=== PATIENT | female | born 1970 | race American Indian/Alaskan Native ===

== ENCOUNTER 2018-08-24 07:42 | Inpatient (IN) | payer BC ==
[2018-08-24] MEDS ORDERED: APRESOLINE IV ONE (08:12)
[2018-08-24 08:30] LABS: Red Blood Count 2.73 M/mm3 (3.65-5.03)
--- NOTE | 2018-08-24 08:32 | XRay Report ---
AP CHEST: HISTORY: Short of breath AP view of the chest demonstrates a normal mediastinal and cardiac contour with clear lungs and normal bony and soft tissue structures. IMPRESSION: Unremarkable AP chest.
[2018-08-24] MEDS ORDERED: ZOFRAN IV ONE (08:38)
[2018-08-24] MEDS ORDERED: HumuLIN R IV ONE ×2 (08:38→09:03)
[2018-08-24] MEDS ORDERED: NACL 0.9% 1000 ML 1,000 ML IV ONE ×2 (08:38→09:03)
[2018-08-24 08:40] LABS: Alanine Aminotransferase 31 units/L (7-56); BUN/Creatinine Ratio 20; Blood Urea Nitrogen 22 mg/dL (7-17); Hemolysis Index 10
--- NOTE | 2018-08-24 08:40 | Emergency Department Report ---
ED General Adult HPI - General Chief complaint: Hyperglycemia Stated complaint: WEAK/VOMIT/DIABETIC Time Seen by Provider: 08/24/18 08:04 Source: patient Mode of arrival: Wheelchair Limitations: No Limitations - History of Present Illness Initial comments: Patient is 48 years old female with history of diabetes and anemia secondary to excessive menstrual bleeding. Patient is not actively bleeding. Patient presented to the ER complaining of generalized weakness, nausea vomiting and abdominal pain for the last 3 days. Patient found to have a high blood sugar at home. Patient stated that she is on insulin noncompliant with her medication. Patient denied any fever or chills. Patient also complaining of palpitation. - Related Data Home Medications Medication Instructions Recorded Confirmed Last Taken Insulin NPH/Regular [Novolin 70/30] 35 unit SUB-Q QPM 06/11/15 06/11/15 Unknown Insulin NPH/Regular [Novolin 70/30] 50 unit SUB-Q QAM 06/11/15 06/11/15 Unknown Previous Rx's Medication Instructions Recorded Last Taken Type ALBUTEROL Inhaler (OR & NICU) 2 puff IH QID PRN #1 inhalation 06/11/15 Unknown Rx [Proair] Benzonatate [Tessalon Perles] 100 mg PO Q8HR #30 capsule 06/11/15 Unknown Rx Docusate Sodium [Colace] 100 mg PO BID #60 capsule 06/11/15 Unknown Rx Ferrous Sulfate [Feosol 325 MG tab] 325 mg PO TID #90 tablet 06/11/15 Unknown Rx levoFLOXacin [Levaquin TAB] 500 mg PO QDAY #10 tablet 06/11/15 Unknown Rx Naproxen [Naprosyn TAB] 500 mg PO BID PRN #20 tablet 02/05/16 Unknown Rx Allergies Allergy/AdvReac Type Severity Reaction Status Date / Time No Known Allergies Allergy Verified 08/24/18 07:45 ED Review of Systems ROS: Stated complaint: WEAK/VOMIT/DIABETIC Other details as noted in HPI Comment: All other systems reviewed and negative Constitutional: denies: chills, fever Respiratory: denies: cough, orthopnea Cardiovascular: palpitations. denies: chest pain Gastrointestinal: abdominal pain, nausea, vomiting. denies: diarrhea, constipation, hematemesis, melena, hematochezia Musculoskeletal: denies: back pain Neurological: weakness (generalized). denies: headache, numbness, paresthesias, confusion ED Past Medical Hx - Past Medical History Previous Medical History?: Yes Hx Diabetes: Yes - Surgical History Past Surgical History?: Yes Additional Surgical History: tubal ligation - Social History Smoking Status: Former Smoker Substance Use Type: None - Medications Home Medications: Home Medications Medication Instructions Recorded Confirmed Last Taken Type ALBUTEROL Inhaler (OR & NICU) 2 puff IH QID PRN #1 inhalation 06/11/15 Unknown Rx [Proair] Benzonatate [Tessalon Perles] 100 mg PO Q8HR #30 capsule 06/11/15 Unknown Rx Docusate Sodium [Colace] 100 mg PO BID #60 capsule 06/11/15 Unknown Rx Ferrous Sulfate [Feosol 325 MG tab] 325 mg PO TID #90 tablet 06/11/15 Unknown Rx Insulin NPH/Regular [Novolin 70/30] 35 unit SUB-Q QPM 06/11/15 06/11/15 Unknown History Insulin NPH/Regular [Novolin 70/30] 50 unit SUB-Q QAM 06/11/15 06/11/15 Unknown History levoFLOXacin [Levaquin TAB] 500 mg PO QDAY #10 tablet 06/11/15 Unknown Rx Naproxen [Naprosyn TAB] 500 mg PO BID PRN #20 tablet 02/05/16 Unknown Rx ED Physical Exam - General Limitations: No Limitations General appearance: alert, in no apparent distress - Head Head exam: Present: atraumatic, normocephalic, normal inspection - Eye Eye exam: Present: normal appearance, PERRL - ENT ENT exam: Present: mucous membranes dry, TM's normal bilaterally, normal external ear exam - Neck Neck exam: Present: normal inspection, full ROM. Absent: tenderness, meningismus, lymphadenopathy, thyromegaly - Respiratory Respiratory exam: Present: normal lung sounds bilaterally. Absent: respiratory distress, wheezes, rales, rhonchi - Cardiovascular Cardiovascular Exam: Present: tachycardia, normal heart sounds - GI/Abdominal GI/Abdominal exam: Present: soft, normal bowel sounds. Absent: distended, tenderness, guarding, rebound, rigid, organomegaly, mass, bruit, pulsatile mass, hernia - Extremities Exam Extremities exam: Present: normal inspection, full ROM, normal capillary refill. Absent: pedal edema, calf tenderness - Back Exam Back exam: Present: normal inspection, full ROM. Absent: tenderness, CVA tenderness (R), CVA tenderness (L), muscle spasm, paraspinal tenderness, vertebral tenderness - Neurological Exam Neurological exam: Present: alert, oriented X3, CN II-XII intact, normal gait, reflexes normal - Skin Skin exam: Present: warm, intact, normal color ED Course Vital Signs 08/24/18 08:05 Temperature 98.4 F Pulse Rate 90 Respiratory 16 Rate Blood Pressure 131/58 O2 Sat by Pulse 100 Oximetry ED Medical Decision Making - Lab Data Result diagrams: 08/24/18 08:14 08/24/18 08:14 - EKG Data -: EKG Interpreted by Mt EKG shows normal: sinus rhythm Rate: tachycardia - EKG Data Interpretation: no acute changes - Radiology Data Radiology results: report reviewed Chest x-ray is negative for acute finding. - Medical Decision Making Patient is 48 years old female with history of diabetes and anemia secondary to excessive menstrual bleeding. Patient presented to the ER complaining of generalized weakness, nausea vomiting and abdominal pain for the last 3 days. Patient found to have a high blood sugar at home. Patient stated that she is on insulin noncompliant with her medication. Patient denied any fever or chills. Patient also complaining of palpitation. Patient found to be in DKA with anion gap 27. Patient also found to have a hemoglobin of 4.5 secondary to excessive menstrual bleeding. Patient is started on insulin drip and 2 units of RBCs ordered. Patient will need to be admitted to intensive care unit. I discussed the patient with Dr. Lamb, he advised to admit the patient to Dr. Kearney. Critical Care Time: Yes Critical care time in (mins) excluding proc time.: 45 Critical care attestation.: If time is entered above; I have spent that time in minutes in the direct care of this critically ill patient, excluding procedure time. ED Disposition Clinical Impression: DKA (diabetic ketoacidoses), Acute blood loss anemia Disposition: OP ADMIT IP TO THIS HOSP Is pt being admited?: Yes Condition: Stable Instructions: Diabetic Ketoacidosis (ED) Referrals: SJ BERNARDO MD [Primary Care Provider] - 3-5 Days
[2018-08-24 08:45] LABS: Bilirubin,Direct < 0.2 mg/dL (0-0.2)
[2018-08-24 09:06] LABS: Mean Corpuscular HGB Conc 28 % (30-34)
[2018-08-24 09:20] LABS: Hemoglobin 4.5 gm/dl (10.1-14.3)
[2018-08-24 09:21] LABS: Hematocrit 16.1 % (30.3-42.9); Mean Corpuscular Volume 59 fl (79-97); Platelet Count 2052 K/mm3 (140-440); Red Cell Distribution Width 29.6 % (13.2-15.2)
[2018-08-24 09:22] LABS: Bilirubin,Urine NEG (Negative); Blood,Urine NEG (Negative); Color,Urine Straw (Yellow); Mucus,Urine FEW /HPF; Urobilinogen,Urine < 2.0 mg/dL (<2.0)
[2018-08-24] MEDS ORDERED: NACL 0.9% 500 ML 500 ML IV ONE (09:27)
[2018-08-24] MEDS ORDERED: D50W (25GM) Syringe IV PRN ×3 (09:31→13:33)
[2018-08-24] MEDS ORDERED: ROCEPHIN/NS 1 GM/50 ML 1 GM/50 ML BAG IV ONE (09:39)
[2018-08-24] MEDS ORDERED: HumuLIN R 100 UNITS in NACL 0.9% 99 ML IV SCH ×2 (10:00→14:00)
[2018-08-24 10:11] LABS: BUN/Creatinine Ratio 20; Blood Urea Nitrogen 20 mg/dL (7-17); Calcium 8.6 mg/dL (8.4-10.2); Hemolysis Index 0
[2018-08-24] MEDS ORDERED: D5W/0.45% NACL/KCL 20 MEQ 20 MEQ/1,000 ML BAG IV SCH (12:00)
[2018-08-24 12:50] LABS: BUN/Creatinine Ratio 21; Blood Urea Nitrogen 19 mg/dL (7-17); Calcium 8.2 mg/dL (8.4-10.2); Hemolysis Index 0
[2018-08-24] MEDS ORDERED: SODIUM CHLORIDE FLUSH SYRINGE 10 ML IV PRN (13:33)
--- NOTE | 2018-08-24 13:42 | History and Physical Report ---
History of Present Illness Date of examination: 08/24/18 Date of admission: 08/24/18 09:40 Chief complaint: N/V History of present illness: Patient is 48 years old female with history of diabetes and anemia secondary to excessive menstrual bleeding. Patient is not actively bleeding. Patient presented to the ER complaining of generalized weakness, nausea vomiting and abdominal pain for the last 3 days. Patient found to have a high blood sugar at home. Patient stated that she is on insulin and reports that she has been compliant with her medication. However, patient states she did not take her insulin yesterday because she did not feel well. Patient reported 5 episodes of vomiting yesterday and 4 episodes this morning. Patient denied any fever or chills. Patient also complaining of palpitation. No headache or visual disturbances. Past History Past Medical History: anemia, diabetes Past Surgical History: No surgical history Social history: no significant social history Family history: no significant family history Medications and Allergies Allergies Allergy/AdvReac Type Severity Reaction Status Date / Time No Known Allergies Allergy Verified 08/24/18 07:45 Home Medications Medication Instructions Recorded Confirmed Last Taken Type Insulin NPH/Regular [Novolin 70/30] 25 units SUB-Q HS 06/11/15 08/24/18 Unknown History Insulin NPH/Regular [Novolin 70/30] 35 units SUB-Q QAM 06/11/15 08/24/18 Unknown History Cider Vinegar [Apple Cider Vinegar] 300 mg PO DAILY 08/24/18 08/24/18 Unknown History Active Meds: Active Medications Dextrose (D50w (25gm) Syringe) 0 ml IV PRN PRN PRN Reason: Hypoglycemia Insulin Human Regular 100 (units/ Sodium Chloride) 100 mls @ 1 mls/hr IV TITR EDISON; Protocol Last Titration: 08/24/18 13:15 Dose: 1.5 units/hr, 1.5 mls/hr Documented by: Potassium Chloride/Dextrose/Sod Cl (D5w/0.45% Nacl/Kcl 20 Meq) 20 meq in 1,000 mls @ 125 mls/hr IV DIRECT EDISON Last Admin: 08/24/18 12:08 Dose: 125 mls/hr Documented by: Review of Systems All systems: negative Exam - Constitutional Vitals: Temp Pulse Resp BP Pulse Ox 98.5 F 87 16 119/53 98 08/24/18 13:14 08/24/18 13:14 08/24/18 13:14 08/24/18 13:14 08/24/18 13:14 General appearance: Present: no acute distress, well-nourished - EENT Eyes: Present: PERRL ENT: hearing intact, clear oral mucosa - Neck Neck: Present: supple, normal ROM - Respiratory Respiratory effort: normal Respiratory: bilateral: CTA - Cardiovascular Heart Sounds: Present: S1 & S2. Absent: rub, click - Extremities Extremities: pulses symmetrical, No edema Peripheral Pulses: within normal limits - Abdominal General gastrointestinal: Present: soft, non-tender, non-distended, normal bowel sounds Female genitourinary: Present: normal - Integumentary Integumentary: Present: clear, warm, dry - Musculoskeletal Musculoskeletal: gait normal, strength equal bilaterally - Psychiatric Psychiatric: appropriate mood/affect, intact judgment & insight - Neurologic Neurologic: CNII-XII intact, moves all extremities Results - Labs CBC & Chem 7: 08/24/18 08:14 08/24/18 12:11 Labs: Laboratory Last Values WBC 13.8 K/mm3 (4.5-11.0) H 08/24/18 08:14 RBC 2.73 M/mm3 (3.65-5.03) L 08/24/18 08:14 Hgb 4.5 gm/dl (10.1-14.3) L* 08/24/18 08:14 Hct 16.1 % (30.3-42.9) L* 08/24/18 08:14 MCV 59 fl (79-97) L 08/24/18 08:14 MCH 17 pg (28-32) L 08/24/18 08:14 MCHC 28 % (30-34) L 08/24/18 08:14 RDW 29.6 % (13.2-15.2) H 08/24/18 08:14 Plt Count 2052 K/mm3 (140-440) H* 08/24/18 08:14 Sodium 141 mmol/L (137-145) 08/24/18 12:11 Potassium 3.9 mmol/L (3.6-5.0) 08/24/18 12:11 Chloride 108.8 mmol/L (98-107) H 08/24/18 12:11 Carbon Dioxide 20 mmol/L (22-30) L 08/24/18 12:11 16 mmol/L 08/24/18 12:11 BUN 19 mg/dL (7-17) H 08/24/18 12:11 0.9 mg/dL (0.7-1.2) 08/24/18 12:11 Estimated GFR > 60 ml/min 08/24/18 12:11 21 % 08/24/18 12:11 Glucose 147 mg/dL (65-100) H 08/24/18 12:11 POC Glucose 141 (70-105) H 08/24/18 13:12 Calcium 8.2 mg/dL (8.4-10.2) L 08/24/18 12:11 Phosphorus 2.60 mg/dL (2.5-4.5) 08/24/18 09:41 Magnesium 2.00 mg/dL (1.7-2.3) 08/24/18 09:41 0.50 mg/dL (0.1-1.2) 08/24/18 08:14 < 0.2 mg/dL (0-0.2) 08/24/18 08:14 AST 37 units/L (5-40) 08/24/18 08:14 ALT 31 units/L (7-56) 08/24/18 08:14 101 units/L (35-129) 08/24/18 08:14 < 0.010 ng/mL (0.00-0.029) 08/24/18 08:14 8.0 g/dL (6.3-8.2) 08/24/18 08:14 4.0 g/dL (3.9-5) 08/24/18 08:14 1.0 % 08/24/18 08:14 8 units/L (13-60) L 08/24/18 08:14 Straw (Yellow) 08/24/18 09:00 Clear (Clear) 08/24/18 09:00 5.0 (5.0-7.0) 08/24/18 09:00 Ur Specific [place] 1.016 (1.003-1.030) 08/24/18 09:00 30 mg/dl mg/dL (Negative) 08/24/18 09:00 >=500 mg/dL (Negative) 08/24/18 09:00 80 mg/dL (Negative) 08/24/18 09:00 Neg (Negative) 08/24/18 09:00 Neg (Negative) 08/24/18 09:00 Neg (Negative) 08/24/18 09:00 < 2.0 mg/dL (<2.0) 08/24/18 09:00 Ur Leukocyte Esterase Neg (Negative) 08/24/18 09:00 1.0 /HPF (0.0-6.0) 08/24/18 09:00 2.0 /HPF (0.0-6.0) 08/24/18 09:00 U Epithel Cells (Auto) 3.0 /HPF (0-13.0) 08/24/18 09:00 Few /HPF 08/24/18 09:00 Blood Type TNR 08/24/18 09:53 Antibody Screen 08/24/18 09:53 Crossmatch See Detail 08/24/18 09:53 Assessment and Plan Assessment and plan: DKA. Patient will be placed on a DKA protocol. We will start IV insulin and transition to long-acting insulin when her acidosis has resolved. Severe acute blood loss anemia. Patient will be transfused PRBCs. Follow H&H. Etiology likely secondary to acute blood loss from menorrhagia. Menorrhagia. Consult FULL ROLL INSPECTOR for further evaluation.
[2018-08-24 14:14] LABS: Basophils % (Manual) 0 % (0.0-1.8); Eosinophils % (Manual) 0 % (0.0-4.3); Total Cells Counted 100
[2018-08-24 14:16] LABS: Anisocytosis 3+; Hypochromasia 3+; Stomatocytes Rare
[2018-08-24 14:17] LABS: Large Platelets Rare; Platelet Estimate Appears Increased; Tear Drop Cells Few
--- NOTE | 2018-08-24 14:47 | Consultation ---
History of Present Illness Consult date: 08/24/18 Requesting physician: RAMESH TAPIA Reason for consult: menorrhagia, other (symptomatic anemia) History of present illness: Patient is 48 years old BF LMP 08/11/18 with a history of diabetes and anemia secondary to excessive menstrual bleeding, presented to the ER complaining of generalized weakness, nausea vomiting and abdominal pain for the last 3 days. She was found to have a high blood sugar at home. She stated that she is on insulin and reports that she has been compliant with her medication. However, she did not take her insulin yesterday because she did not feel well, and having palpitations. She reported 5 episodes of vomiting yesterday and 4 episodes this morning. She denied any fever or chills, headaches or visual disturbances. I have been consulted to evaluate her menorrhagia. She is currently not bleeding, but her H/H was 4.5/16.1 A pelvic u/s was perfomed showing an enlarged uterus measuring 15.1 x 5.9 x 7.8cm with multiple fibroids. 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: fibroids Social history: no significant social history, single Medications and Allergies Allergies Allergy/AdvReac Type Severity Reaction Status Date / Time No Known Allergies Allergy Verified 08/24/18 07:45 Home Medications Medication Instructions Recorded Confirmed Last Taken Type Insulin NPH/Regular [Novolin 70/30] 25 units SUB-Q HS 06/11/15 08/24/18 Unknown History Insulin NPH/Regular [Novolin 70/30] 35 units SUB-Q QAM 06/11/15 08/24/18 Unknown History Cider Vinegar [Apple Cider Vinegar] 300 mg PO DAILY 08/24/18 08/24/18 Unknown History Active Meds: Active Medications Dextrose (D50w (25gm) Syringe) 0 ml IV PRN PRN PRN Reason: Hypoglycemia Dextrose (D50w (25gm) Syringe) 0 ml IV PRN PRN PRN Reason: Hypoglycemia Dextrose (D50w (25gm) Syringe) 0 ml IV ONCE PRN PRN Reason: Hypoglycemia Insulin Human Regular 100 (units/ Sodium Chloride) 100 mls @ 1 mls/hr IV TITR EDISON; Protocol Last Titration: 08/24/18 14:26 Dose: 1 units/hr, 1 mls/hr Documented by: Potassium Chloride/Dextrose/Sod Cl (D5w/0.45% Nacl/Kcl 20 Meq) 20 meq in 1,000 mls @ 125 mls/hr IV DIRECT EDISON Last Admin: 08/24/18 12:08 Dose: 125 mls/hr Documented by: Insulin Human Regular 100 (units/ Sodium Chloride) 100 mls @ 1 mls/hr IV TITR EDISON; Protocol Sodium Chloride (Sodium Chloride Flush Syringe 10 Ml) 10 ml IV BID EDISON Sodium Chloride (Sodium Chloride Flush Syringe 10 Ml) 10 ml IV PRN PRN PRN Reason: LINE FLUSH Review of Systems All systems: negative - Vital Signs Vital signs: Vital Signs Temp Pulse Resp BP Pulse Ox 98.4 F 90 16 131/58 100 08/24/18 08:05 08/24/18 08:05 08/24/18 08:05 08/24/18 08:05 08/24/18 08:05 Temp Pulse Resp BP Pulse Ox 98.2 F 88 18 129/56 100 08/24/18 14:15 08/24/18 14:15 08/24/18 14:15 08/24/18 14:15 08/24/18 14:15 - Physical Exam Breasts: Positive: deferred Cardiovascular: Regular rate Abdomen: Positive: normal appearance, soft Uterus: Positive: enlarged Extremities: Positive: normal Results Result Diagrams: 08/24/18 16:57 08/25/18 01:24 Abnormal lab results 08/24/18 08/24/18 08/24/18 Range/Units 07:52 08:14 08:14 WBC 13.8 H (4.5-11.0) K/mm3 RBC 2.73 L (3.65-5.03) M/mm3 Hgb 4.5 L* (10.1-14.3) gm/dl Hct 16.1 L* (30.3-42.9) % MCV 59 L (79-97) fl MCH 17 L (28-32) pg MCHC 28 L (30-34) % RDW 29.6 H (13.2-15.2) % Plt Count 2052 H* (140-440) K/mm3 Seg Neuts % (Manual) 94.0 H (40.0-70.0) % Lymphocytes % (Manual) 5.0 L (13.4-35.0) % Nucleated RBC % 1.0 H (0.0-0.9) % Seg Neutrophils # Man 13.0 H (1.8-7.7) K/mm3 Lymphocytes # (Manual) 0.7 L (1.2-5.4) K/mm3 Sodium 136 L (137-145) mmol/L Chloride (98-107) mmol/L Carbon Dioxide 15 L (22-30) mmol/L BUN 22 H (7-17) mg/dL Glucose 514 H* (65-100) mg/dL POC Glucose 492 H (70-105) Calcium (8.4-10.2) mg/dL Lipase (13-60) units/L Crossmatch 08/24/18 08/24/18 08/24/18 Range/Units 08:14 09:41 09:41 WBC (4.5-11.0) K/mm3 RBC (3.65-5.03) M/mm3 Hgb (10.1-14.3) gm/dl Hct (30.3-42.9) % MCV (79-97) fl MCH (28-32) pg MCHC (30-34) % RDW (13.2-15.2) % Plt Count (140-440) K/mm3 Seg Neuts % (Manual) (40.0-70.0) % Lymphocytes % (Manual) (13.4-35.0) % Nucleated RBC % (0.0-0.9) % Seg Neutrophils # Man (1.8-7.7) K/mm3 Lymphocytes # (Manual) (1.2-5.4) K/mm3 Sodium (137-145) mmol/L Chloride (98-107) mmol/L Carbon Dioxide 17 L (22-30) mmol/L BUN 20 H (7-17) mg/dL Glucose 323 H (65-100) mg/dL POC Glucose (70-105) Calcium (8.4-10.2) mg/dL Lipase 8 L (13-60) units/L Crossmatch See Detail 08/24/18 08/24/18 08/24/18 Range/Units 09:53 10:14 11:20 WBC (4.5-11.0) K/mm3 RBC (3.65-5.03) M/mm3 Hgb (10.1-14.3) gm/dl Hct (30.3-42.9) % MCV (79-97) fl MCH (28-32) pg MCHC (30-34) % RDW (13.2-15.2) % Plt Count (140-440) K/mm3 Seg Neuts % (Manual) (40.0-70.0) % Lymphocytes % (Manual) (13.4-35.0) % Nucleated RBC % (0.0-0.9) % Seg Neutrophils # Man (1.8-7.7) K/mm3 Lymphocytes # (Manual) (1.2-5.4) K/mm3 Sodium (137-145) mmol/L Chloride (98-107) mmol/L Carbon Dioxide (22-30) mmol/L BUN (7-17) mg/dL Glucose (65-100) mg/dL POC Glucose 347 H 222 H (70-105) Calcium (8.4-10.2) mg/dL Lipase (13-60) units/L Crossmatch See Detail 08/24/18 08/24/18 08/24/18 Range/Units 12:11 12:21 13:12 WBC (4.5-11.0) K/mm3 RBC (3.65-5.03) M/mm3 Hgb (10.1-14.3) gm/dl Hct (30.3-42.9) % MCV (79-97) fl MCH (28-32) pg MCHC (30-34) % RDW (13.2-15.2) % Plt Count (140-440) K/mm3 Seg Neuts % (Manual) (40.0-70.0) % Lymphocytes % (Manual) (13.4-35.0) % Nucleated RBC % (0.0-0.9) % Seg Neutrophils # Man (1.8-7.7) K/mm3 Lymphocytes # (Manual) (1.2-5.4) K/mm3 Sodium (137-145) mmol/L Chloride 108.8 H (98-107) mmol/L Carbon Dioxide 20 L (22-30) mmol/L BUN 19 H (7-17) mg/dL Glucose 147 H (65-100) mg/dL POC Glucose 185 H 141 H (70-105) Calcium 8.2 L (8.4-10.2) mg/dL Lipase (13-60) units/L Crossmatch All other labs normal. Ultrasound: report reviewed (uterus 15.1 x 5.9 x 7.8cm with multiple fibroids) Assessment and Plan - Patient Problems (1) Menorrhagia with irregular cycle Onset Date: 08/24/18 Current Visit: Yes Status: Acute Plan to address problem: A: Symptomatic anemia - currently being transfused Menorrhagia - most likely due to uterine fibroids Uterine fibroids IDDM - DKA P: Agree with admission for blood transfusion and management of DKA She can follow up in the office for further evaluation of menorrhagia including a Pap smear and endometrial biopsy. (2) Uterine fibroid Onset Date: 08/24/18 Current Visit: Yes Status: Acute Qualifiers: Uterine leiomyoma location: intramural, submucous, and subserous Qualified Code(s): D25.1 - Intramural leiomyoma of uterus; D25.0 - Submucous leiomyoma of uterus; D25.2 - Subserosal leiomyoma of uterus (3) Acute blood loss anemia Onset Date: 08/24/18 Current Visit: Yes Status: Acute (4) DKA (diabetic ketoacidoses) Onset Date: 08/24/18 Current Visit: Yes Status: Acute Qualifiers: Diabetes mellitus type: type 1 Diabetes mellitus complication detail: without coma Qualified Code(s): E10.10 - Type 1 diabetes mellitus with ketoacidosis without coma
[2018-08-24] MEDS ORDERED: NACL 0.9% 500 ML 500 ML ONE (16:24)
[2018-08-24 17:32] LABS: Hematocrit 20.4 % (30.3-42.9); Hemoglobin 6.2 gm/dl (10.1-14.3); Mean Corpuscular HGB Conc 31 % (30-34); Red Blood Count 3.04 M/mm3 (3.65-5.03)
[2018-08-24 17:33] LABS: Mean Corpuscular Volume 67 fl (79-97)
[2018-08-24 17:34] LABS: Red Cell Distribution Width 36.3 % (13.2-15.2)
[2018-08-24 17:36] LABS: Platelet Count 1679 K/mm3 (140-440)
[2018-08-24 17:42] LABS: BUN/Creatinine Ratio 19; Blood Urea Nitrogen 17 mg/dL (7-17); Calcium 7.9 mg/dL (8.4-10.2); Hemolysis Index 0
[2018-08-24 18:36] LABS: Anisocytosis 3+; Hypochromasia 2+; Total Cells Counted 100
[2018-08-24 18:37] LABS: Dimorphic RBC Yes
--- NOTE | 2018-08-24 18:52 | Ultrasound Report ---
PROCEDURE: US TRANSVAGINAL TECHNIQUE: HISTORY: Menorrhagia; Severe anemia COMPARISONS: FINDINGS: The uterus measures 15.1 x 5.9 x 7.8 cm. At the fundus of the uterus there is a subserosal fibroid me asuring 4.4 x 3.8 x 4.9 cm. There is also an anterior fibroid measuring 2.2 x 1.6 x 2.6 cm in the pos terior fibroid measuring 3.7 x 1.9 x 4.1 cm. At the fundus there is a 2 cm echogenic focus which could reflect a submucosal fibroid or polyp. Right ovary is 3.6 x 2.1 x 3.2 cm normal sonographic appearance Left ovary is 5.4 x 1.8 x 4.5 cm. No free fluid identified IMPRESSION: Multiple uterine fibroids Echogenic focus at the fundus which appears within the endometrium may reflect submucosal fibroid kathia graciela polyp. This document is electronically signed by Maykel Mar MD., August 24 2018 06:50:04 PM ET
--- NOTE | 2018-08-24 18:53 | Ultrasound Report ---
PROCEDURE: US PELVIC COMPLETE TECHNIQUE: Ultrasound pelvis transabdominal HISTORY: Menorrhagia; Severe anemia COMPARISONS: FINDINGS: The uterus measures 15.1 x 5.9 x 7.8 cm. At the fundus of the uterus there is a subserosal fibroid me asuring 4.4 x 3.8 x 4.9 cm. There is also an anterior fibroid measuring 2.2 x 1.6 x 2.6 cm in the pos terior fibroid measuring 3.7 x 1.9 x 4.1 cm. At the fundus there is a 2 cm echogenic focus which could reflect a submucosal fibroid or polyp. Right ovary is 3.6 x 2.1 x 3.2 cm normal sonographic appearance Left ovary is 5.4 x 1.8 x 4.5 cm. No free fluid identified IMPRESSION: Multiple uterine fibroids Echogenic focus at the fundus which appears within the endometrium may reflect submucosal fibroid kathia graciela polyp. This document is electronically signed by Maykel Mar MD., August 24 2018 06:52:03 PM ET
[2018-08-25] MEDS ORDERED: LASIX IV ONE (01:15)
[2018-08-25] MEDS ORDERED: NACL 0.9% 500 ML 500 ML IV ONE ×2 (01:16→14:00)
[2018-08-25 03:34] LABS: BUN/Creatinine Ratio 19; Blood Urea Nitrogen 15 mg/dL (7-17); Calcium 8.4 mg/dL (8.4-10.2)
[2018-08-25 04:25] LABS: Hemolysis Index 0
[2018-08-25] MEDS: SODIUM CHLORIDE FLUSH SYRINGE 10 ML IV SCH ×3 (05:19→21:12)
[2018-08-25] MEDS: HumaLOG SUB-Q SCH ×4 (05:39→18:05)
[2018-08-25] MEDS ORDERED: D50W (25GM) Syringe IV PRN (10:21)
--- NOTE | 2018-08-25 11:50 | Consultation ---
History of Present Illness Consult date: 08/25/18 Requesting physician: RAMESH TAPIA Reason for consult: other (Diabetic ketoacidosis, severe blood loss anemia) History of present illness: Patient is 48 years old female with history of diabetes and anemia secondary to excessive menstrual bleeding. Patient is not actively bleeding. Patient presented to the ER complaining of generalized weakness, nausea vomiting and abdominal pain for the last 3 days. Patient found to have a high blood sugar at home. Patient stated that she is on insulin and reports that she has been compliant with her medication. However, patient states she did not take her insulin yesterday because she did not feel well. Patient reported 5 episodes of vomiting yesterday and 4 episodes this morning. Patient denied any fever or chills. Patient also complaining of palpitation. No headache or visual disturbances. Admitted to the ICU for severe anemia and diabetic ketoacidosis. I have been consulted fro critical care management. Patient was seen and examined. Vitals, labs, medications, chart and imaging reviewed. History as documented. She does endorse a history of smoking cigars, and heavy menstrual flow, with diagnosis of fibroids. Past History Past Medical History: anemia, diabetes Past Surgical History: No surgical history Social history: no significant social history, single Family history: no significant family history Medications and Allergies Allergies Allergy/AdvReac Type Severity Reaction Status Date / Time No Known Allergies Allergy Verified 08/24/18 07:45 Home Medications Medication Instructions Recorded Confirmed Last Taken Type Insulin NPH/Regular [Novolin 70/30] 25 units SUB-Q HS 06/11/15 08/24/18 Unknown History Insulin NPH/Regular [Novolin 70/30] 35 units SUB-Q QAM 06/11/15 08/24/18 Unknown History Cider Vinegar [Apple Cider Vinegar] 300 mg PO DAILY 08/24/18 08/24/18 Unknown History Active Meds: Active Medications Dextrose (D50w (25gm) Syringe) 0 ml IV ONCE PRN PRN Reason: Hypoglycemia Dextrose (D50w (25gm) Syringe) 50 ml IV PRN PRN PRN Reason: Hypoglycemia Insulin Human Isoph/Insulin Regular (Humulin 70/30) 35 unit SUB-Q QAM [facility] Insulin Human Isoph/Insulin Regular (Humulin 70/30) 25 unit SUB-Q HS [facility] Insulin Human Lispro (Humalog) 0 unit SUB-Q Q6HR [facility]; Protocol Last Admin: 08/25/18 05:39 Dose: 6 unit Documented by: Insulin Human Regular (Humulin R) 0 units SUB-Q ACHS [facility]; Protocol Sodium Chloride (Sodium Chloride Flush Syringe 10 Ml) 10 ml IV BID [facility]ISON Last Admin: 08/25/18 09:53 Dose: 10 ml Documented by: Sodium Chloride (Sodium Chloride Flush Syringe 10 Ml) 10 ml IV PRN PRN PRN Reason: LINE FLUSH Physical Examination Vital signs: Vital Signs Temp Pulse Resp BP Pulse Ox 98.4 F 90 16 131/58 100 08/24/18 08:05 08/24/18 08:05 08/24/18 08:05 08/24/18 08:05 08/24/18 08:05 General appearance: Present: no acute distress, well-nourished - EENT Eyes: Present: PERRL ENT: hearing intact, clear oral mucosa - Neck Neck: Present: supple, normal ROM - Respiratory Respiratory effort: normal Respiratory: bilateral: CTA - Cardiovascular Heart Sounds: Present: S1 & S2. Absent: rub, click - Extremities Extremities: pulses symmetrical, No edema Peripheral Pulses: within normal limits - Abdominal General gastrointestinal: Present: soft, non-tender, non-distended, normal bowel sounds Female genitourinary: Present: normal - Integumentary Integumentary: Present: clear, warm, dry - Musculoskeletal Musculoskeletal: gait normal, strength equal bilaterally - Psychiatric Psychiatric: appropriate mood/affect, intact judgment & insight - Neurologic Neurologic: CNII-XII intact, moves all extremities Results - Laboratory Findings CBC and BMP: 08/25/18 11:29 08/25/18 01:24 Abnormal lab findings: Abnormal Labs 08/24/18 08/24/18 08/24/18 07:52 08:14 08:14 WBC 13.8 H RBC 2.73 L Hgb 4.5 L* Hct 16.1 L* MCV 59 L MCH 17 L MCHC 28 L RDW 29.6 H Plt Count 2052 H* Seg Neuts % (Manual) 94.0 H Lymphocytes % (Manual) 5.0 L Monocytes % (Manual) Nucleated RBC % 1.0 H Seg Neutrophils # Man 13.0 H Lymphocytes # (Manual) 0.7 L Monocytes # (Manual) Sodium 136 L Chloride Carbon Dioxide 15 L BUN 22 H Glucose 514 H* POC Glucose 492 H Calcium Lipase Crossmatch 08/24/18 08/24/18 08/24/18 08:14 09:41 09:41 WBC RBC Hgb Hct MCV MCH MCHC RDW Plt Count Seg Neuts % (Manual) Lymphocytes % (Manual) Monocytes % (Manual) Nucleated RBC % Seg Neutrophils # Man Lymphocytes # (Manual) Monocytes # (Manual) Sodium Chloride Carbon Dioxide 17 L BUN 20 H Glucose 323 H POC Glucose Calcium Lipase 8 L Crossmatch See Detail 08/24/18 08/24/18 08/24/18 09:53 10:14 11:20 WBC RBC Hgb Hct MCV MCH MCHC RDW Plt Count Seg Neuts % (Manual) Lymphocytes % (Manual) Monocytes % (Manual) Nucleated RBC % Seg Neutrophils # Man Lymphocytes # (Manual) Monocytes # (Manual) Sodium Chloride Carbon Dioxide BUN Glucose POC Glucose 347 H 222 H Calcium Lipase Crossmatch See Detail 08/24/18 08/24/18 08/24/18 12:11 12:21 13:12 WBC RBC Hgb Hct MCV MCH MCHC RDW Plt Count Seg Neuts % (Manual) Lymphocytes % (Manual) Monocytes % (Manual) Nucleated RBC % Seg Neutrophils # Man Lymphocytes # (Manual) Monocytes # (Manual) Sodium Chloride 108.8 H Carbon Dioxide 20 L BUN 19 H Glucose 147 H POC Glucose 185 H 141 H Calcium 8.2 L Lipase Crossmatch 08/24/18 08/24/18 08/24/18 14:28 15:31 16:21 WBC RBC Hgb Hct MCV MCH MCHC RDW Plt Count Seg Neuts % (Manual) Lymphocytes % (Manual) Monocytes % (Manual) Nucleated RBC % Seg Neutrophils # Man Lymphocytes # (Manual) Monocytes # (Manual) Sodium Chloride Carbon Dioxide BUN Glucose POC Glucose 111 H 109 H 122 H Calcium Lipase Crossmatch 08/24/18 08/24/18 08/24/18 16:46 16:57 17:36 WBC RBC 3.04 L Hgb 6.2 L Hct 20.4 L MCV 67 L MCH 21 L MCHC RDW 36.3 H Plt Count 1679 H* Seg Neuts % (Manual) 72.0 H Lymphocytes % (Manual) Monocytes % (Manual) 9.0 H Nucleated RBC % Seg Neutrophils # Man Lymphocytes # (Manual) Monocytes # (Manual) 1.0 H Sodium Chloride 107.5 H Carbon Dioxide 21 L BUN Glucose 103 H POC Glucose 125 H Calcium 7.9 L Lipase Crossmatch 08/24/18 08/24/18 08/24/18 18:27 20:15 23:41 WBC RBC Hgb Hct MCV MCH MCHC RDW Plt Count Seg Neuts % (Manual) Lymphocytes % (Manual) Monocytes % (Manual) Nucleated RBC % Seg Neutrophils # Man Lymphocytes # (Manual) Monocytes # (Manual) Sodium Chloride Carbon Dioxide BUN Glucose POC Glucose 134 H 140 H 166 H Calcium Lipase Crossmatch 08/25/18 08/25/18 01:24 05:38 WBC RBC Hgb Hct MCV MCH MCHC RDW Plt Count Seg Neuts % (Manual) Lymphocytes % (Manual) Monocytes % (Manual) Nucleated RBC % Seg Neutrophils # Man Lymphocytes # (Manual) Monocytes # (Manual) Sodium 136 L Chloride Carbon Dioxide 20 L BUN Glucose 170 H POC Glucose 326 H Calcium Lipase Crossmatch Assessment and Plan Severe symptomatic anemia Diabetic ketoacidosis Menorrhagia/Fibroids Tobacco use disorder Obesity Thrombocytosis, probably reactive to severe blood loss anemia -Supportive transfusions, follow up H and H -Diabetic ketoacidosis treatment per protocol- insulin infusion, serial BMPs, venous ABG, IV fluids, replete electrolytes as indicated -SCDs for VTE prophylaxis -Smoking cessation counselling done at the bedside. She states she quit several weeks ago and intends to remain quit -Anti-emetics, analgesia -Diabetic education -Life style modifications and weight loss -Agree with OBGYN consult -Iron replacement therapy -Once she is off insulin infusion, start steady carb diet, basal bolus insulin therapy Thank you for consult. Will follow
[2018-08-25 12:22] LABS: Hematocrit 27.6 % (30.3-42.9); Hemoglobin 8.6 gm/dl (10.1-14.3)
[2018-08-25] MEDS: HumuLIN R SUB-Q SCH ×3 (12:45→21:35)
--- NOTE | 2018-08-25 13:17 | Progress Note ---
Assessment and Plan Assessment and plan: DKA. Transition to her home regimen long-acting insulin. Severe acute blood loss anemia. Patient will be transfused PRBCs. Follow H&H. Etiology likely secondary to acute blood loss from menorrhagia. Menorrhagia. [facility] following. A pelvic u/s was perfomed showing an enlarged uterus measuring 15.1 x 5.9 x 7.8cm with multiple fibroids. Uterine fibroid. Cont per [facility] History Interval history: No new issues overnight. Hospitalist Physical - Constitutional Vitals: Temp Pulse Resp BP Pulse Ox 98.7 F 72 18 142/66 95 08/25/18 12:00 08/25/18 11:01 08/25/18 11:01 08/25/18 11:01 08/25/18 11:01 General appearance: Present: no acute distress, well-nourished - EENT Eyes: Present: PERRL, EOM intact ENT: hearing intact, clear oral mucosa, dentition normal - Neck Neck: Present: supple, normal ROM - Respiratory Respiratory effort: normal Respiratory: bilateral: CTA - Cardiovascular Rhythm: regular Heart Sounds: Present: S1 & S2. Absent: gallop, rub - Extremities Extremities: no ischemia, No edema, Full ROM - Abdominal General gastrointestinal: soft, non-tender, non-distended, normal bowel sounds - Integumentary Integumentary: Present: clear, warm, dry - Neurologic Neurologic: CNII-XII intact, moves all extremities Results - Labs CBC & Chem 7: 08/25/18 11:29 08/25/18 01:24 Labs: Laboratory Last Values WBC 10.6 K/mm3 (4.5-11.0) 08/24/18 16:57 RBC 3.04 M/mm3 (3.65-5.03) L 08/24/18 16:57 Hgb 8.6 gm/dl (10.1-14.3) L 08/25/18 11:29 Hct 27.6 % (30.3-42.9) L D 08/25/18 11:29 MCV 67 fl (79-97) L 08/24/18 16:57 MCH 21 pg (28-32) L 08/24/18 16:57 MCHC 31 % (30-34) 08/24/18 16:57 RDW 36.3 % (13.2-15.2) H 08/24/18 16:57 Plt Count 1679 K/mm3 (140-440) H* 08/24/18 16:57 Add Manual Diff Complete 08/24/18 16:57 Total Counted 100 08/24/18 16:57 Seg Neuts % (Manual) 72.0 % (40.0-70.0) H 08/24/18 16:57 0 % 08/24/18 16:57 17.0 % (13.4-35.0) 08/24/18 16:57 Reactive Lymphs % (Man) 0 % 08/24/18 16:57 9.0 % (0.0-7.3) H 08/24/18 16:57 1.0 % (0.0-4.3) 08/24/18 16:57 1.0 % (0.0-1.8) 08/24/18 16:57 0 % 08/24/18 16:57 0 % 08/24/18 16:57 0 % 08/24/18 16:57 0 % 08/24/18 16:57 Nucleated RBC % Not Reportable 08/24/18 16:57 Seg Neutrophils # Man 7.6 K/mm3 (1.8-7.7) 08/24/18 16:57 Band Neutrophils # 0.0 K/mm3 08/24/18 16:57 1.8 K/mm3 (1.2-5.4) 08/24/18 16:57 Abs React Lymphs (Man) 0.0 K/mm3 08/24/18 16:57 1.0 K/mm3 (0.0-0.8) H 08/24/18 16:57 0.1 K/mm3 (0.0-0.4) 08/24/18 16:57 0.1 K/mm3 (0.0-0.1) 08/24/18 16:57 0.0 K/mm3 08/24/18 16:57 0.0 K/mm3 08/24/18 16:57 0.0 K/mm3 08/24/18 16:57 Blast Cells # 0.0 K/mm3 08/24/18 16:57 Pathologist Review 08/24/18 08:14 WBC Morphology Not Reportable 08/24/18 16:57 Hypersegmented Neuts Not Reportable 08/24/18 16:57 Hyposegmented Neuts Not Reportable 08/24/18 16:57 Hypogranular Neuts Not Reportable 08/24/18 16:57 Not Reportable 08/24/18 16:57 Not Reportable 08/24/18 16:57 Not Reportable 08/24/18 16:57 Not Reportable 08/24/18 16:57 Not Reportable 08/24/18 16:57 Not Reportable 08/24/18 16:57 Not Reportable 08/24/18 16:57 Not Reportable 08/24/18 16:57 Plt Clumps, EDTA Not Reportable 08/24/18 16:57 Not Reportable 08/24/18 16:57 Not Reportable 08/24/18 16:57 Not Reportable 08/24/18 16:57 Plt Morphology Comment Not Reportable 08/24/18 16:57 RBC Morphology Not Reportable 08/24/18 16:57 Dimorphic RBCs Yes 08/24/18 16:57 Not Reportable 08/24/18 16:57 2+ 08/24/18 16:57 Not Reportable 08/24/18 16:57 3+ 08/24/18 16:57 2+ 08/24/18 16:57 Not Reportable 08/24/18 16:57 Not Reportable 08/24/18 16:57 Not Reportable 08/24/18 16:57 Not Reportable 08/24/18 16:57 Not Reportable 08/24/18 16:57 Not Reportable 08/24/18 16:57 Not Reportable 08/24/18 16:57 Rare 08/24/18 08:14 Not Reportable 08/24/18 16:57 Not Reportable 08/24/18 16:57 Not Reportable 08/24/18 16:57 Not Reportable 08/24/18 16:57 Not Reportable 08/24/18 16:57 Not Reportable 08/24/18 16:57 Not Reportable 08/24/18 16:57 Acanthocytes (Spur) Not Reportable 08/24/18 16:57 Rouleaux Not Reportable 08/24/18 16:57 Not Reportable 08/24/18 16:57 Not Reportable 08/24/18 16:57 Not Reportable 08/24/18 16:57 Not Reportable 08/24/18 16:57 Hem Pathologist Commnt No 08/24/18 16:57 VBG pH 7.327 (7.320-7.420) 08/24/18 16:46 Sodium 136 mmol/L (137-145) L 08/25/18 01:24 Potassium 4.0 mmol/L (3.6-5.0) 08/25/18 01:24 Chloride 106.9 mmol/L (98-107) 08/25/18 01:24 Carbon Dioxide 20 mmol/L (22-30) L 08/25/18 01:24 13 mmol/L 08/25/18 01:24 BUN 15 mg/dL (7-17) 08/25/18 01:24 0.8 mg/dL (0.7-1.2) 08/25/18 01:24 Estimated GFR > 60 ml/min 08/25/18 01:24 19 % 08/25/18 01:24 Glucose 170 mg/dL (65-100) H 08/25/18 01:24 POC Glucose 326 (70-105) H 08/25/18 05:38 Calcium 8.4 mg/dL (8.4-10.2) 08/25/18 01:24 Phosphorus 2.80 mg/dL (2.5-4.5) 08/24/18 16:46 Magnesium 2.00 mg/dL (1.7-2.3) 08/24/18 16:46 0.50 mg/dL (0.1-1.2) 08/24/18 08:14 < 0.2 mg/dL (0-0.2) 08/24/18 08:14 AST 37 units/L (5-40) 08/24/18 08:14 ALT 31 units/L (7-56) 08/24/18 08:14 101 units/L (35-129) 08/24/18 08:14 < 0.010 ng/mL (0.00-0.029) 08/24/18 08:14 8.0 g/dL (6.3-8.2) 08/24/18 08:14 4.0 g/dL (3.9-5) 08/24/18 08:14 1.0 % 08/24/18 08:14 8 units/L (13-60) L 08/24/18 08:14 Straw (Yellow) 08/24/18 09:00 Clear (Clear) 08/24/18 09:00 5.0 (5.0-7.0) 08/24/18 09:00 Ur Specific [place] 1.016 (1.003-1.030) 08/24/18 09:00 30 mg/dl mg/dL (Negative) 08/24/18 09:00 >=500 mg/dL (Negative) 08/24/18 09:00 80 mg/dL (Negative) 08/24/18 09:00 Neg (Negative) 08/24/18 09:00 Neg (Negative) 08/24/18 09:00 Neg (Negative) 08/24/18 09:00 < 2.0 mg/dL (<2.0) 08/24/18 09:00 Ur Leukocyte Esterase Neg (Negative) 08/24/18 09:00 1.0 /HPF (0.0-6.0) 08/24/18 09:00 2.0 /HPF (0.0-6.0) 08/24/18 09:00 U Epithel Cells (Auto) 3.0 /HPF (0-13.0) 08/24/18 09:00 Few /HPF 08/24/18 09:00 Blood Type TNR 08/24/18 09:53 Antibody Screen 08/24/18 09:53 Crossmatch See Detail 08/24/18 09:53 Active Medications - Current Medications Current Medications: Generic Name Dose Route Start Last Admin Trade Name Freq PRN Reason Stop Dose Admin Dextrose 0 ml 08/24/18 13:33 D50w (25gm) Syringe IV ONCE PRN Hypoglycemia Dextrose 50 ml 08/25/18 10:21 D50w (25gm) Syringe IV PRN PRN Hypoglycemia Insulin Human Isoph/Insulin Regular 35 unit 08/25/18 12:00 08/25/18 12:42 Humulin 70/30 SUB-Q 35 unit QAM [facility] Administration Insulin Human Isoph/Insulin Regular 25 unit 08/25/18 22:00 Humulin 70/30 SUB-Q HS [facility] Insulin Human Lispro 0 unit 08/25/18 06:00 08/25/18 05:39 Humalog SUB-Q 6 unit Q6HR [facility] Administration Protocol Insulin Human Regular 0 units 08/25/18 12:00 08/25/18 12:45 Humulin R SUB-Q 6 units ACHS [facility] Administration Protocol Sodium Chloride 10 ml 08/24/18 22:00 08/25/18 09:53 Sodium Chloride Flush Syringe 10 Ml IV 10 ml BID [facility] Administration Sodium Chloride 10 ml 08/24/18 13:33 Sodium Chloride Flush Syringe 10 Ml IV PRN PRN LINE FLUSH
[2018-08-25 15:40] LABS: BUN/Creatinine Ratio 19; Blood Urea Nitrogen 17 mg/dL (7-17); Hemolysis Index 0
[2018-08-25] MEDS ORDERED: ZOFRAN IV PRN (20:54)
[2018-08-26] MEDS: HumaLOG SUB-Q SCH ×3 (01:53→12:00)
--- NOTE | 2018-08-26 08:25 | Event Note ---
Date: 08/26/18 [id number]
[2018-08-26 08:45] LABS: Hematocrit 27.3 % (30.3-42.9); Mean Corpuscular HGB Conc 33 % (30-34); Mean Corpuscular Volume 70 fl (79-97)
[2018-08-26 08:49] LABS: Red Cell Distribution Width 36.1 % (13.2-15.2)
[2018-08-26 08:51] LABS: Platelet Count 1573 K/mm3 (140-440)
[2018-08-26 09:11] LABS: Alanine Aminotransferase 19 units/L (7-56); Albumin 3.5 g/dL (3.9-5); BUN/Creatinine Ratio 16; Blood Urea Nitrogen 11 mg/dL (7-17); Calcium 8.8 mg/dL (8.4-10.2); Hemolysis Index 0
--- NOTE | 2018-08-26 09:13 | Progress Note ---
Assessment and Plan Severe symptomatic anemia Diabetic ketoacidosis Menorrhagia/Fibroids Tobacco use disorder Obesity Thrombocytosis, probably reactive to severe blood loss anemia -Supportive transfusions, iron replacement therapy as outpatient -Diabetes management -SCDs for VTE prophylaxis -Smoking cessation counselling done at the bedside. She states she quit several weeks ago and intends to remain quit -Anti-emetics, analgesia -Diabetic education -Life style modifications and weight loss -States she will follow up with OBGYN as outpatient with a plan for possible hysterectomy -Iron replacement therapy -Discharge planning Will sign off, re-consult if needed Subjective Date of service: 08/26/18 Interval history: Follow up: Post ICU stay for DKA; Severe anemia Patient was seen and examined. Vitals, labs, medications, chart reviewed. Discussed with RN who was at the bedside at the time of my visit. Patient states she is feeling better. She denies any nausea or vomiting, no chills, no fevers, no diarrhea. No shortness of breath. Objective Vital Signs - 12hr 08/25/18 22:37 Temperature 98.5 F Pulse Rate 79 Respiratory 18 Rate Blood Pressure 145/71 O2 Sat by Pulse 95 Oximetry Reviewed Constitutional: no acute distress, alert, other (morbid obesity) Eyes: non-icteric ENT: oropharynx moist Neck: supple, no lymphadenopathy Effort: normal Ascultation: Bilateral: clear Cardiovascular: regular rate and rhythm, other (S1,S2) Gastrointestinal: normoactive bowel sounds, soft, non-tender, non-distended Integumentary: normal Extremities: no cyanosis, no edema, pink and warm, pulses normal Neurologic: normal mental status, non-focal exam, CN II-XII normal, motor strength normal and Psychiatric: mood appropriate, affect normal CBC and BMP: 08/26/18 07:44 08/26/18 07:44 Abnormal lab findings: Abnormal Labs 08/24/18 08/24/18 08/24/18 07:52 08:14 08:14 WBC 13.8 H RBC 2.73 L Hgb 4.5 L* Hct 16.1 L* MCV 59 L MCH 17 L MCHC 28 L RDW 29.6 H Plt Count 2052 H* Seg Neuts % (Manual) 94.0 H Lymphocytes % (Manual) 5.0 L Monocytes % (Manual) Nucleated RBC % 1.0 H Seg Neutrophils # Man 13.0 H Lymphocytes # (Manual) 0.7 L Monocytes # (Manual) Sodium 136 L Chloride Carbon Dioxide 15 L BUN 22 H Glucose 514 H* POC Glucose 492 H Calcium Albumin Lipase Crossmatch 08/24/18 08/24/18 08/24/18 08:14 09:41 09:41 WBC RBC Hgb Hct MCV MCH MCHC RDW Plt Count Seg Neuts % (Manual) Lymphocytes % (Manual) Monocytes % (Manual) Nucleated RBC % Seg Neutrophils # Man Lymphocytes # (Manual) Monocytes # (Manual) Sodium Chloride Carbon Dioxide 17 L BUN 20 H Glucose 323 H POC Glucose Calcium Albumin Lipase 8 L Crossmatch See Detail 08/24/18 08/24/18 08/24/18 09:53 10:14 11:20 WBC RBC Hgb Hct MCV MCH MCHC RDW Plt Count Seg Neuts % (Manual) Lymphocytes % (Manual) Monocytes % (Manual) Nucleated RBC % Seg Neutrophils # Man Lymphocytes # (Manual) Monocytes # (Manual) Sodium Chloride Carbon Dioxide BUN Glucose POC Glucose 347 H 222 H Calcium Albumin Lipase Crossmatch See Detail 08/24/18 08/24/18 08/24/18 12:11 12:21 13:12 WBC RBC Hgb Hct MCV MCH MCHC RDW Plt Count Seg Neuts % (Manual) Lymphocytes % (Manual) Monocytes % (Manual) Nucleated RBC % Seg Neutrophils # Man Lymphocytes # (Manual) Monocytes # (Manual) Sodium Chloride 108.8 H Carbon Dioxide 20 L BUN 19 H Glucose 147 H POC Glucose 185 H 141 H Calcium 8.2 L Albumin Lipase Crossmatch 08/24/18 08/24/18 08/24/18 14:28 15:31 16:21 WBC RBC Hgb Hct MCV MCH MCHC RDW Plt Count Seg Neuts % (Manual) Lymphocytes % (Manual) Monocytes % (Manual) Nucleated RBC % Seg Neutrophils # Man Lymphocytes # (Manual) Monocytes # (Manual) Sodium Chloride Carbon Dioxide BUN Glucose POC Glucose 111 H 109 H 122 H Calcium Albumin Lipase Crossmatch 08/24/18 08/24/18 08/24/18 16:46 16:57 17:36 WBC RBC 3.04 L Hgb 6.2 L Hct 20.4 L MCV 67 L MCH 21 L MCHC RDW 36.3 H Plt Count 1679 H* Seg Neuts % (Manual) 72.0 H Lymphocytes % (Manual) Monocytes % (Manual) 9.0 H Nucleated RBC % Seg Neutrophils # Man Lymphocytes # (Manual) Monocytes # (Manual) 1.0 H Sodium Chloride 107.5 H Carbon Dioxide 21 L BUN Glucose 103 H POC Glucose 125 H Calcium 7.9 L Albumin Lipase Crossmatch 08/24/18 08/24/18 08/24/18 18:27 20:15 20:30 WBC RBC Hgb Hct MCV MCH MCHC RDW Plt Count Seg Neuts % (Manual) Lymphocytes % (Manual) Monocytes % (Manual) Nucleated RBC % Seg Neutrophils # Man Lymphocytes # (Manual) Monocytes # (Manual) Sodium 136 L Chloride Carbon Dioxide 20 L BUN Glucose 119 H POC Glucose 134 H 140 H Calcium 8.0 L Albumin Lipase Crossmatch 08/24/18 08/25/18 08/25/18 23:41 01:24 05:38 WBC RBC Hgb Hct MCV MCH MCHC RDW Plt Count Seg Neuts % (Manual) Lymphocytes % (Manual) Monocytes % (Manual) Nucleated RBC % Seg Neutrophils # Man Lymphocytes # (Manual) Monocytes # (Manual) Sodium 136 L Chloride Carbon Dioxide 20 L BUN Glucose 170 H POC Glucose 166 H 326 H Calcium Albumin Lipase Crossmatch 08/25/18 08/25/18 08/25/18 11:27 11:29 16:17 WBC RBC Hgb 8.6 L Hct 27.6 L D MCV MCH MCHC RDW Plt Count Seg Neuts % (Manual) Lymphocytes % (Manual) Monocytes % (Manual) Nucleated RBC % Seg Neutrophils # Man Lymphocytes # (Manual) Monocytes # (Manual) Sodium Chloride Carbon Dioxide BUN Glucose POC Glucose 332 H 168 H Calcium Albumin Lipase Crossmatch 08/26/18 08/26/18 08/26/18 01:50 05:54 07:44 WBC RBC Hgb 9.0 L Hct 27.3 L MCV 70 L MCH 23 L MCHC RDW 36.1 H Plt Count 1573 H* Seg Neuts % (Manual) Lymphocytes % (Manual) Monocytes % (Manual) Nucleated RBC % Seg Neutrophils # Man Lymphocytes # (Manual) Monocytes # (Manual) Sodium Chloride Carbon Dioxide BUN Glucose POC Glucose 240 H 239 H Calcium Albumin Lipase Crossmatch 08/26/18 08/26/18 07:44 07:59 WBC RBC Hgb Hct MCV MCH MCHC RDW Plt Count Seg Neuts % (Manual) Lymphocytes % (Manual) Monocytes % (Manual) Nucleated RBC % Seg Neutrophils # Man Lymphocytes # (Manual) Monocytes # (Manual) Sodium 136 L Chloride Carbon Dioxide BUN Glucose 210 H POC Glucose 200 H Calcium Albumin 3.5 L Lipase Crossmatch Allied health notes reviewed: nursing
[2018-08-26 09:14] LABS: Iron 14 ug/dL (37-170); Total Iron Binding Capacity 342 mcg/dL (250-450)
[2018-08-26] MEDS: HumuLIN R SUB-Q SCH ×3 (09:26→17:42)
[2018-08-26] MEDS ORDERED: FERRLECIT 125 MG in NACL 0.9% 100 ML IV ONE (10:00)
--- NOTE | 2018-08-26 10:05 | Discharge Summary ---
Providers - Providers Date of Admission: 08/24/18 09:40 Date of discharge: 08/26/18 Attending physician: RAMESH TAPIA 08/24/18 13:41 Consult to Physician [CONS] Routine Comment: Consulting Provider: PASQUALE BARRAGAN Physician Instructions: Reason For Exam: menorrhagia 08/24/18 19:09 Consult to Physician [CONS] Routine Comment: Consulting Provider: JATIN THORNTON Physician Instructions: Reason For Exam: critical care management 08/25/18 07:25 Consult to Physician [CONS] Routine Comment: Consulting Provider: VOLODYMYR NGO Physician Instructions: Reason For Exam: erythrocytosis r/o reactive versus other etiology Primary care physician: [facility], Hospitalization Reason for admission: DKA Condition: Stable Hospital course: Patient is 48 years old female with history of diabetes, anemia and menstrual bleeding who presented to the ER complaining of generalized weakness, nausea vomiting and abdominal pain for the last 3 days prior to admission. Patient found to have a high blood sugar at home. Patient stated that she was on insulin and reports that she had been compliant with her medication. However, patient stated she did not take her insulin the day prior to admission because she did not feel well. Patient reported several episodes of nausea and vomiting. The patient was admitted with diagnosis of severe anemia, thrombocytosis, DKA and gastroparesis exacerbation. The patient was initially admitted to the ICU and started on IV insulin drip until her DKA resolved. Once her anion gap closed, patient was transitioned to her home long acting insulin regimen. The patient's blood sugar stabilized. With regards to her anemia and menorrhagia The patient was seen by COMPLIANCE MONITOR and hematology. A pelvic u/s was perfomed showing an enlarged uterus measuring 15.1 x 5.9 x 7.8cm with multiple fibroids. The patient received blood transfusions and hemoglobin stabilized. COMPLIANCE MONITOR felt the patient could've follow-up in the office for further evaluation of menorrhagia including a Pap smear and endometrial biopsy. Hematology felt that the etiology of the thrombocytosis was likely reactive due to the severe anemia. Patient can follow-up as an outpatient with regards to this as well. Dedicated discharge time 32 minutes. Disposition: - TO HOME OR SELFCARE Time spent for discharge: 32 - Discharge Diagnoses (1) Reactive thrombocytosis Status: Acute (2) Acute blood loss anemia Status: Acute (3) DKA (diabetic ketoacidoses) Status: Acute Qualifiers: Diabetes mellitus type: type 1 Diabetes mellitus complication detail: without coma Qualified Code(s): E10.10 - Type 1 diabetes mellitus with ketoacidosis without coma (4) Menorrhagia with irregular cycle Status: Acute (5) Uterine fibroid Status: Acute Qualifiers: Uterine leiomyoma location: intramural, submucous, and subserous Qualified Code(s): D25.1 - Intramural leiomyoma of uterus; D25.0 - Submucous leiomyoma of uterus; D25.2 - Subserosal leiomyoma of uterus Core Measure Documentation - Palliative Care Palliative Care/ Comfort Measures: Not Applicable - Core Measures Any of the following diagnoses?: none Exam - Constitutional Vitals: Temp Pulse Resp BP Pulse Ox 98.5 F 79 18 145/71 95 08/25/18 22:37 08/25/18 22:37 08/25/18 22:37 08/25/18 22:37 08/25/18 22:37 General appearance: Present: no acute distress, well-nourished - EENT Eyes: Present: PERRL ENT: hearing intact, clear oral mucosa - Neck Neck: Present: supple, normal ROM - Respiratory Respiratory effort: normal Respiratory: bilateral: CTA - Cardiovascular Heart Sounds: Present: S1 & S2. Absent: rub, click - Extremities Extremities: pulses symmetrical, No edema Peripheral Pulses: within normal limits - Abdominal General gastrointestinal: Present: soft, non-tender, non-distended, normal bowel sounds Female genitourinary: Present: normal - Integumentary Integumentary: Present: clear, warm, dry - Musculoskeletal Musculoskeletal: gait normal, strength equal bilaterally - Psychiatric Psychiatric: appropriate mood/affect, intact judgment & insight - Neurologic Neurologic: CNII-XII intact, moves all extremities Plan Activity: no restrictions Weight Bearing Status: Weight Bear as Tolerated Diet: diabetic Follow up with: SJ BERNARDO MD [Primary Care Provider] - 3-5 Days VOLODYMYR NGO MD [Staff Physician] - 7 Days JASMYNE DRAKE MD [Staff Physician] - 7 Days Prescriptions: Insulin NPH/Regular [NovoLIN 70/30] 35 units SUB-Q QAM 30 Days units Insulin NPH/Regular [NovoLIN 70/30] 25 units SUB-Q HS 30 Days units
[2018-08-26] MEDS: SODIUM CHLORIDE FLUSH SYRINGE 10 ML IV SCH (11:15)
[2018-08-26 12:33] LABS: Anisocytosis 3+; Basophils % (Manual) 0 % (0.0-1.8); Dimorphic RBC Yes; Hypochromasia 1+; Total Cells Counted 100
[2018-08-26 12:34] LABS: Platelet Estimate Consistent w Auto
[2018-08-26 13:01] VITALS: BP 137/68
--- NOTE | 2018-08-27 02:27 | Consultation ---
REFERRED BY: Rivas Kearney M.D. REASON FOR CONSULTATION: Elevated platelets. HISTORY OF PRESENT ILLNESS: I saw the patient, a 48-year-old female in the medical floor. The patient came to the hospital because of fatigue. She has history of diabetes, heavy cycles. She also had nausea, vomiting, abdominal pain. For her diabetes, she takes insulin. She also had vomiting and no fever, no chills. At this time, no headache, no visual disturbances. No ear discharge, no chest pain, no palpitations, no abdominal pain, no nausea, no vomiting. Fatigue is present. No seizure or syncope or loss of consciousness. The patient has pica for ice. The patient has heavy cycles lasting 4-5 days in 7 days every month. She has seen a firer locomotive crane and there is a plan for hysterectomy in October. PAST MEDICAL HISTORY: As above. PAST SURGICAL HISTORY: None significant. SOCIAL HISTORY: Noncontributory. The patient works at [employer]. FAMILY HISTORY: Noncontributory. ALLERGIES: None. MEDICATIONS: Include insulin. PHYSICAL EXAMINATION: HEENT: Pallor present. No icterus. NECK: No neck lymph nodes. HEART: S1, S2. LUNGS: Clear to auscultation. ABDOMEN: Soft. EXTREMITIES: No calf tenderness. NEUROLOGIC: Alert, awake, oriented. LABORATORY DATA: At admission, hemoglobin is 4.5 and then she received transfusion support. Platelet is 1679, white cells 10. Post-transfusion hemoglobin 8.6, MCV 67. Potassium 4, creatinine 0.8, calcium 8.4, bilirubin 0.5. ASSESSMENT AND PLAN: 1. Microcytic anemia secondary to heavy cycles. 2. Elevated platelets, most likely reactive to iron deficiency anemia. I discussed with the patient regarding oral iron versus IV iron. We will look into IV iron treatment for now. She will need outpatient followup. 3. History of heavy cycles. She would need gynecology followup. There is a plan for hysterectomy in October. 4. History of diabetes, on medications. 5. History of nausea, vomiting at admission. I will follow the patient during inpatient stay and then in the clinic setting. JOB# [id number] NM/NTS
== END 2018-08-26 18:15 | disposition home or self-care (01) | DRG 74 ==
LOC: ED 07:42 → CC1 09:40 → 3A 08-25 14:53
PROVIDERS: ADMIT Hospitalist; ATTEND Hospitalist
PROC: 30233N1 Transfusion of Nonautologous Red Blood Cells into Peripheral Vein, Percutaneous Approach (ICD-10-PCS; principal; 2018-08-24)
DX: E10.43 Type 1 diabetes mellitus with diabetic autonomic (poly)neuropathy (principal); D62 Acute posthemorrhagic anemia; E10.10 Type 1 diabetes mellitus with ketoacidosis without coma; N92.0 Excessive and frequent menstruation with regular cycle; D25.0 Submucous leiomyoma of uterus; K31.84 Gastroparesis; E66.9 Obesity, unspecified; D25.1 Intramural leiomyoma of uterus; D25.2 Subserosal leiomyoma of uterus; Z79.4 Long term (current) use of insulin; Z98.51 Tubal ligation status; Z68.34 Body mass index [BMI] 34.0-34.9, adult; Z71.6 Tobacco abuse counseling; Z87.891 Personal history of nicotine dependence
CPT/HCPCS: 36415; 71045; 76830; 76856; 80048; 80053; 80076; 81001; 82607; 82728; 82747; 82805; 82962; 83550; 83690; 83735; 84100; 84484; 85007; 85014; 85018; 85025; 86850; 86900; 86901; 86920; 87040; 93005; 93010; G0378; J0696; J1815; J1940; J2405; J2916; J7030; J7040; P9016